=== PATIENT | male | born 1960 | race Caucasian/White ===

== ENCOUNTER → 2021-05-12 14:45 | Outpatient (CLI) | payer OTHER, SELFPAY ==
--- NOTE | ~2021-05-12 | XR_ITS ---
EXAMINATION: XR knee LT min 4V DATE: 05/12/2021 16:06 INDICATION: Left knee pain. TECHNIQUE: 4 views of left knee were obtained. COMPARISON: None. FINDINGS: Bone alignment is normal. No fracture. There is mild osteoarthritis of medial and patellofe moral compartments characterized by tiny marginal osteophytes. No joint space narrowing. There is cho ndrocalcinosis of the menisci. There is a small knee joint effusion. IMPRESSION: 1. Mild left knee osteoarthritis. 2. Small left knee joint effusion. Reviewed, dictated and finalized at location A.
== END ==
PROVIDERS: PCP Family Medicine Adolescent Medicine; Visit Provider Physician Assistant
DX: M17.12 Unilateral primary osteoarthritis, left knee (principal); M25.462 Effusion, left knee
CPT/HCPCS: 73564

== ENCOUNTER 2021-10-03 10:17 | Emergency (ER) | payer OTHER, SELFPAY ==
[2021-10-03 11:04] VITALS: BP 135/82; PULSE 70; RESP 18; TEMP 37.2; O2SAT 100
--- NOTE | 2021-10-03 11:19 | ED.UPPEXIN ---
HPI - Extremity Injury (Upper) General Chief Complaint: Extremity Injury, Upper Stated Complaint: Rt Shoulder,Rt Upper Back Pain Time Seen by Provider: 10/03/21 11:04 Source: patient and RN notes reviewed Mode of arrival: ambulatory Limitations: no limitations History of Present Illness HPI narrative: Patient presents today complaining of right shoulder pain. Reports several hours of repetitive motion while working yesterday and currently rates his pain 10/10. Denies numbness or tingling. Reports radiation down to his hand occasionally. He has been taking Tylenol, ibuprofen, ice, and icy hot. Pain increases with movement. MD complaint: injury to: right and shoulder Related Data Home Medications Medication Instructions Recorded Confirmed indomethacin 50 mg PO TID PRN 10/03/21 10/03/21 Allergies Allergy/AdvReac Type Severity Reaction Status Date / Time No Known Allergies Allergy Verified 10/03/21 10:49 Review of Systems Review of Systems: CONSTITUTIONAL: Denies body aches, fever, chills, or sweats. EYES: Denies visual changes, redness, or discharge. ENT: Denies rhinorrhea, congestion, sore throat, or otalgia. CARDIOVASCULAR: Denies chest pain, palpitations, or edema. RESPIRATORY: Denies cough or dyspnea. GASTROINTESTINAL: Denies abdominal pain, nausea, vomiting, or diarrhea. GENITOURINARY: Denies dysuria or hematuria. SKIN: Denies rash, itching, or wounds. MUSCULOSKELETAL: Denies back pain, or myalgia. + Right shoulder injury NEUROLOGIC: Denies headache, numbness, tingling, or weakness. PSYCH: Denies depression or anxiety. PMFSH Comments At time of signature, I have reviewed and agree with nursing past medical, surgical, social and family history unless otherwise noted. Please see nursing chart for further information. There is no relevant family history pertinent to the presenting complaint Exam Narrative: GENERAL: Well-appearing, well-nourished, and in no acute distress. HEAD: Normocephalic, atraumatic. EYES: EOMI. No redness or drainage. Conjunctivae normal. ENT: Mucous membranes pink and moist. NECK: Normal AROM. CHEST: No respiratory distress. EXTREMITIES: Right shoulder: Tenderness along the posterior and lateral shoulder as well as down into the axilla. Pain with any range of motion. No edema noted. Distal sensation intact. Capillary refill normal. Radial pulse normal. Strength normal. SKIN: Warm, dry, no rash. Capillary refill normal. Normal skin turgor. NEURO: No focal deficits. Alert and oriented x3. Gait steady. PSYCH: Normal affect. No signs of depression or anxiety. Course Course Level of Care: Express Care Visit Vital Signs Vital signs: Vital Signs Temperature 98.9 F 10/03/21 11:04 Pulse Rate 70 10/03/21 11:04 Respiratory Rate 18 10/03/21 11:04 Blood Pressure 135/82 10/03/21 11:04 Pulse Oximetry 100 10/03/21 11:04 Temperature 98.9 F 10/03/21 11:04 Pulse Rate 70 10/03/21 11:04 Respiratory Rate 18 10/03/21 11:04 Blood Pressure 135/82 10/03/21 11:04 Pulse Oximetry 100 10/03/21 11:04 Reviewed. Pt has been instructed to follow up with his PCP regarding his elevated blood pressure today. MDM - Extremity Injury (Upper) Differential Diagnosis Differential diagnosis: Likely other (Shoulder strain, bursitis, tendinitis) Critical Care Time Critical Care Time Critical Care Time: No Discharge Plan Discharge Clinical Impression: Right shoulder strain Qualifiers: Encounter type: initial encounter Qualified Code(s): S46.911A - Strain of unspecified muscle, fascia and tendon at shoulder and upper arm level, right arm, initial encounter Patient Disposition: Home, Self-Care Condition: Stable Instructions: Rotator Cuff Injury (ED) Additional Instructions: Please continue Tylenol or ibuprofen for pain. Take the Medrol Dosepak as directed as well. Follow-up with orthopedics for further evaluation of your shoulder. Your blood pressu
== END 2021-10-03 11:31 | disposition home or self-care (01) ==
PROVIDERS: Emergency Provider Nurse Practitioner; PCP Family Medicine Adolescent Medicine
DX: S46.911A Strain of unspecified muscle, fascia and tendon at shoulder and upper arm level, right arm, initial encounter (principal); X50.3XXA Overexertion from repetitive movements, initial encounter; Y99.0 Civilian activity done for income or pay
CPT/HCPCS: 99213; G0463

== ENCOUNTER 2023-01-05 09:13 | Outpatient (CLI) | payer OTHER, SELFPAY ==
--- NOTE | ~2023-01-05 | US_ITS ---
Ultrasound of the Abdominal Aorta INDICATION: Abdominal aortic aneurysm TECHNIQUE: Grayscale, color Doppler, and pulsed Doppler images of the aorta and common iliac arteries were obtained. COMPARISON: None. FINDINGS: Maximum vascular dimensions are as follows: Proximal aorta: 3.1 cm Mid aorta: 2.0 cm Distal aorta: 1.7 cm Right common iliac artery: 1.1 cm Left common iliac artery: 1.1 cm There is no evidence of abdominal aortic aneurysm. IMPRESSION: No abdominal aortic aneurysm. Reviewed, dictated and finalized at location M.
== END 2023-01-05 09:14 | disposition home or self-care (01) ==
PROVIDERS: PCP Nurse Practitioner; Visit Provider Internal Medicine Cardiovascular Disease
DX: I71.21 Aneurysm of the ascending aorta, without rupture (principal); Z72.0 Tobacco use
CPT/HCPCS: 76775

== ENCOUNTER 2023-05-02 16:10 | Outpatient (CLI) | payer OTHER, SELFPAY ==
--- NOTE | ~2023-05-02 | CT_ITS ---
EXAMINATION: CTA chest DATE: 05/02/2023 16:41 INDICATION: Aneurysm of ascending aorta without rupture. TECHNIQUE: Computed tomographic angiography (CTA) of the chest was performed without and with 100 mL Omnipaque-350 intravenous contrast. Automated exposure control and iterative reconstruction technique were employed. The dose-length product was 471.83 mGy-cm. Maximum intensity projection 3D-reconstruc tions of the aorta and other arteries were constructed by the technologist on a separate workstation. COMPARISON: Chest CT 07/06/2006 FINDINGS: There is mild emphysema. There is mild scarring at the lung apices. There is mild dependent atelectasis bilaterally. There is mild scarring in paraspinal right lower lobe. No pleural effusion. The heart size is normal. No pericardial effusion. The aorta measures 4.2 cm at the sinuses of V[place] lva, 4.0 cm at the sinotubular junction, 4.6 cm in mid ascending aorta, 2.8 cm at the aortic isthmus, and 2.8 cm in the mid descending aorta. There is mild aortic atherosclerosis. There is cortical thin jose rafael of left kidney. There is mild thoracic spondylosis and severe cervical spondylosis. IMPRESSION: 1. Ectasia of ascending aorta measuring 4.6 cm. 2. Mild emphysema. Reviewed, dictated and finalized at location A.
[2023-05-02 16:38] LABS: Estimated Glomerular Filt Rate > 60
== END 2023-05-02 16:11 | disposition home or self-care (01) ==
PROVIDERS: PCP Nurse Practitioner; Visit Provider Internal Medicine Cardiovascular Disease
DX: I71.21 Aneurysm of the ascending aorta, without rupture (principal); J43.9 Emphysema, unspecified
CPT/HCPCS: 71275; Q9967